=== PATIENT | male | born 1980 | race Caucasian/White ===

== ENCOUNTER 2017-04-30 22:10 | Emergency (ER) | payer MEDICAID ==
[2017-04-30 22:53] LABS: CHLORIDE,CL 104 mmol/L (98-107); SODIUM,NA 142 mmol/L (136-145)
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
[2017-05-01 06:39] VITALS: BP 143/92
== END 2017-05-01 00:05 ==
LOC: LL.ED 22:10
DX: R20.0 Anesthesia of skin (principal); R79.1 Abnormal coagulation profile; M79.662 Pain in left lower leg; H54.7 Unspecified visual loss; I10 Essential (primary) hypertension; J44.9 Chronic obstructive pulmonary disease, unspecified; J45.909 Unspecified asthma, uncomplicated; M19.90 Unspecified osteoarthritis, unspecified site; K21.9 Gastro-esophageal reflux disease without esophagitis; G43.909 Migraine, unspecified, not intractable, without status migrainosus; F32.9 Major depressive disorder, single episode, unspecified; E66.9 Obesity, unspecified; E11.9 Type 2 diabetes mellitus without complications; Z87.891 Personal history of nicotine dependence; Z79.899 Other long term (current) drug therapy
CPT/HCPCS: 36000; 36415; 70450; 80053; 85025; 85379; 85610; 85730; 93005; 99285

== ENCOUNTER 2017-11-08 20:47 | Emergency (ER) | payer BC, MEDICAID ==
--- NOTE | 2017-11-08 20:54 | EDM.PDOC ---
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 generalized Qualified Code(s): R10.84 - Generalized abdominal pain - Discharge Information Prescriptions: Cyclobenzaprine [Flexeril] 10 mg PO TID PRN #30 tablet PRN Reason: Spasms Instructions: Ketorolac injection, Back Pain, Adult, Pantoprazole injection, Abdominal Pain, Adult, [id number], Famotidine injection Referrals: Wayne Petersen PA-C [Primary Care Provider] - Forms: ED Department Discharge Additional Instructions: 1. Followup with your regular provider in 10-14 days as directed. Schedule update of your routine healthcare at that time as discussed 2. Tylenol 650 mg by mouth every 4 hours and/or OTC ibuprofen 2-3 tabs by mouth every 6 hours with food as directed./needed. Next dose of ibuprofen in 6 hours as needed secondary to medications given in the emergency room. Note, however, that ibuprofen should be used with discretion secondary to history of gastric bypass 3. BenGay or equivalent, heating pad, and/or ice packs as directed. 4. Discuss current stressors, etc. with your regular provider at the above follow-up visit, including recently increased alcohol intake, etc. consider reinitiation of your antidepressant therapy, possible alcohol treatment, etc. 5. Stop all tobacco use AYSHA once your emotional status has improved as directed/per provided information and consider contacting [employer], etc.. 6. Increase activity as tolerated 7. Cisco diet including encouragement of oral fluids such as sports drinks, etc. for 24-48 hours as directed. Advance to heart healthy, diabetic, gastric bypass diet as tolerated thereafter. 8. Sedation precautions with Flexeril with absolutely no alcohol with this medication as discussed 9. Discuss scheduling repeat sleep study with your regular provider to verify that you no longer need CPAP for your sleep apnea - Problem List & Annotations (1) Low back pain SNOMED Code(s): 758516835 Code(s): M54.5 - LOW BACK PAIN Status: Acute Priority: High Current Visit: Yes Onset Date: ~11/06/17 Annotation/Comment:: Minor fall on 11/05 with exacerbation of his chronic low back pain. IV Toradol given in the emergency room. Symptomatic relief as per discharge instructions. Close follow- up by his regular provider Qualifiers: Chronicity: acute Back pain laterality: bilateral Sciatica presence: without sciatica Qualified Code(s): M54.5 - Low back pain (2) Abdominal pain SNOMED Code(s): 74719827 Code(s): R10.9 - UNSPECIFIED ABDOMINAL PAIN Status: Acute Priority: High Current Visit: Yes Onset Date: ~11/06/17 Annotation/Comment:: Recent constipation with magnesium citrate given at home prior to arrival to the emergency room. Cisco diet, etc. for now with IV Protonix and IV Pepcid given the emergency room as above/below. Symptomatic relief for now. Patient tolerated IV Toradol well with symptoms improved prior to discharge Qualifiers: Abdominal location: generalized Qualified Code(s): R10.84 - Generalized abdominal pain (3) Tobacco abuse counseling SNOMED Code(s): 687446087, [id number] Code(s): Z71.6 - TOBACCO ABUSE COUNSELING Status: Chronic Priority: Medium Current Visit: Yes Annotation/Comment:: Tobacco cessation encouraged , however note current family problems secondary to his recent alcohol use, etc. as below. (4) Hypertension SNOMED Code(s): 83090000 Code(s): I10 - ESSENTIAL (PRIMARY) HYPERTENSION Status: Chronic Priority : Medium Current Visit: Yes Annotation/Comment:: Blood pressures were elevated initially in the emergency room however improved at time of discharge. Continue to observe closely by his regular provider Qualifiers: Hypertension type: essential hypertension Qualified Code(s): I10 - Essential (primary) hypertension (5) Mixed anxiety depressive disorder SNOMED Code(s): 717900441 Code(s): F41.8 - OTHER SPECIFIED ANXIETY DISORDERS Status: Chronic Priority: Medium Current Visit: Yes Annotation/Comment:: He did stop his antidepressants on his home with current marital problems secondary to his alcohol use as above. Emotional support provided. Close follow-up by his regular provider as per discharge instructions (6) Osteoarthritis SNOMED Code(s): 680223652 Code(s): M19.90 - UNSPECIFIED OSTEOARTHRITIS, UNSPECIFIED SITE Status: Chronic Priority: Medium Current Visit: Yes Annotation/Comment:: Otherwise stable by history Qualifiers: Osteoarthritis location: multiple joints Osteoarthritis type: primary Qualified Code(s): M15.0 - Primary generalized (osteo)arthritis (7) Peptic reflux disease SNOMED Code(s): 96698713 Code(s): K21.9 - GASTRO-ESOPHAGEAL REFLUX DISEASE WITHOUT ESOPHAGITIS Status: Chronic Priority: Medium Current Visit: Yes Annotation/Comment:: Otherwise stable by history with high-dose IV Pepcid and IV Protonix given in the emergency room (8) Diabetes mellitus SNOMED Code(s): 24722856 Code(s): E11.9 - TYPE 2 DIABETES MELLITUS WITHOUT COMPLICATIONS Status: Chronic Priority: Medium Current Visit: Yes Annotation/Comment:: Note intentional 100 pound weight loss since his gastric bypass surgery as above with previous history of hyperlipidemia and diabetes mellitus prior to this surgery. Note that patient has an excellent glycosylated hemoglobin today. He was congratulated about his weight loss, improved diet, etc. Qualifiers: Diabetes mellitus type: type 2 Diabetes mellitus complication status: without complication Diabetes mellitus halfway insulin use: without intermediate manager use Qualified Code(s): E11.9 - Type 2 diabetes mellitus without complications - Problem List Review Problem List Initiated/Reviewed/Updated: Yes - My Orders Last 24 Hours: My Active Orders 11/08/17 20:55 Peripheral IV Care [RC] . DIRECTED Abdomen Series w Chest 1V [CR] Stat H PYLORI STOOL ANTIGEN [MREF] Urgent OCCULT BLOOD DIAGNOSTIC [OP] Stat Sodium Chloride 0.9% [Saline Flush] 10 ml FLUSH ASDIRECTED PRN Obtain Past Medical Record [OM.PC] Urgent Peripheral IV Insertion Adult [OM.PC] Stat Resuscitation Status Stat 11/08/17 20:56 Lumbar Spine 2 or 3V [CR] Stat 11/08/17 21:00 CULTURE URINE [RM] Stat 11/08/17 Breakfast Nothing Per Oral Diet [DIET] - Assessment/Plan Last 24 Hours: My Active Orders 11/08/17 20:55 Peripheral IV Care [RC] . DIRECTED Abdomen Series w Chest 1V [CR] Stat H PYLORI STOOL ANTIGEN [MREF] Urgent OCCULT BLOOD DIAGNOSTIC [OP] Stat Sodium Chloride 0.9% [Saline Flush] 10 ml FLUSH ASDIRECTED PRN Obtain Past Medical Record [OM.PC] Urgent Peripheral IV Insertion Adult [OM.PC] Stat Resuscitation Status Stat 11/08/17 20:56 Lumbar Spine 2 or 3V [CR] Stat 11/08/17 21:00 CULTURE URINE [RM] Stat 11/08/17 Breakfast Nothing Per Oral Diet [DIET] Assessment:: As above Plan: As above. Extensive precautions were given to the patient and his , who are in agreement with the treatment plan. See Patient Instructions for further treatment and plan.
[2017-11-08] MEDS ORDERED: Famotidine 20 MG/2 ML SDV IVPUSH ONE (20:55)
[2017-11-08] MEDS ORDERED: Pantoprazole 40 MG Vial IVPUSH ONE (20:55)
[2017-11-08] MEDS ORDERED: Lactated Ringers 1,000 ML IV ONE (20:55)
[2017-11-08] MEDS: Sodium Chloride 0.9% 10 ML Syringe FLUSH PRN ×2 (21:28→21:48)
[2017-11-08 21:37] LABS: CHLORIDE,CL 103 mmol/L (98-107); SODIUM,NA 139 mmol/L (136-145)
[2017-11-08] MEDS ORDERED: Ketorolac 30 MG/ML SDV IVPUSH ONE (21:45)
[2017-11-08 22:39] VITALS: BP 141/83
== END 2017-11-08 22:55 | disposition home or self-care (01) ==
LOC: LL.ED 20:47
DX: M54.5 Low back pain (principal); R10.84 Generalized abdominal pain; F41.8 Other specified anxiety disorders; K21.9 Gastro-esophageal reflux disease without esophagitis; M15.0 Primary generalized (osteo)arthritis; I10 Essential (primary) hypertension; E11.9 Type 2 diabetes mellitus without complications; Z71.6 Tobacco abuse counseling; F17.210 Nicotine dependence, cigarettes, uncomplicated; W19.XXXA Unspecified fall, initial encounter; Y92.009 Unspecified place in unspecified non-institutional (private) residence as the place of occurrence of the external cause
CPT/HCPCS: 36415; 72100; 74022; 80053; 80305; 81001; 82150; 83036; 83605; 83690; 83735; 84550; 85025; 85610; 85730; 87086; 96361; 96374; 96375; 99285; C9113; G0480; J1885; J7050; J7120; S0028

== ENCOUNTER 2018-11-21 12:05 | Emergency (ER) | payer MEDICAID, OTHER ==
--- NOTE | 2018-11-21 12:09 | EDM.PDOC ---
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 Obtain Past Medical Record [OM.PC] Routine 11/21/18 12:14 C Collar Applied [Spinal Immobilization] [RC] ASDIRECTED - Assessment/Plan Last 24 Hours: My Active Orders 11/21/18 12:09 Head wo Cont [CT] Stat 11/21/18 12:10 Cervical Spine wo Cont [CT] Stat Max Facial Sinus wo Cont [CT] Stat 11/21/18 12:11 Obtain Past Medical Record [OM.PC] Routine 11/21/18 12:12 Peripheral IV Care [RC] . DIRECTED Peripheral IV Insertion Adult [OM.PC] Stat 11/21/18 12:13 Cardiac Monitoring [RC] . DIRECTED Obtain Past Medical Record [OM.PC] Routine 11/21/18 12:14 C Collar Applied [Spinal Immobilization] [RC] ASDIRECTED Assessment:: As above Plan: As above. Extensive precautions were given to the patient, who is in agreement with the treatment plan. See Patient Instructions for further treatment and plan.
[2018-11-21] MEDS ORDERED: Sodium Chloride 0.9% 10 ML Syringe FLUSH PRN (12:12)
[2018-11-21 12:49] LABS: CHLORIDE,CL 103 mmol/L (98-107); SODIUM,NA 141 mmol/L (136-145)
== END 2018-11-21 14:30 | disposition home or self-care (01) ==
LOC: LL.ED 12:05
DX: S06.0X0A Concussion without loss of consciousness, initial encounter (principal); I11.0 Hypertensive heart disease with heart failure; I50.9 Heart failure, unspecified; K21.9 Gastro-esophageal reflux disease without esophagitis; F17.210 Nicotine dependence, cigarettes, uncomplicated; F41.8 Other specified anxiety disorders; I25.10 Atherosclerotic heart disease of native coronary artery without angina pectoris; M19.90 Unspecified osteoarthritis, unspecified site; I25.2 Old myocardial infarction; Z71.6 Tobacco abuse counseling; Z95.5 Presence of coronary angioplasty implant and graft; Y04.8XXA Assault by other bodily force, initial encounter
CPT/HCPCS: 36000; 36415; 70450; 70486; 72125; 80053; 83605; 83735; 85025; 85610; 85730; 99285; G0480

== ENCOUNTER 2019-04-18 05:38 | Emergency (ER) | payer BC, MEDICAID, OTHER ==
[2019-04-18 05:49] VITALS: BP 152/105
[2019-04-18] MEDS ORDERED: Ketorolac 60 MG/2 ML SDV IM ONE (06:25)
[2019-04-18 06:40] LABS: CHLORIDE,CL 104 mmol/L (98-107); SODIUM,NA 139 mmol/L (136-145)
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
== END 2019-04-18 07:30 | disposition home or self-care (01) ==
LOC: LL.ED 05:38
DX: M79.2 Neuralgia and neuritis, unspecified (principal); M25.512 Pain in left shoulder
CPT/HCPCS: 36415; 73030; 80048; 85025; 96372; 99283; J1885

== ENCOUNTER 2020-01-05 13:50 | Inpatient (IN) | payer BC, MEDICAID, OTHER ==
[2020-01-05] MEDS ORDERED: Sodium Chloride 0.9% 10 ML Syringe FLUSH PRN (14:04)
[2020-01-05] MEDS ORDERED: Famotidine 20 MG/2 ML SDV IVPUSH ONE (14:04)
[2020-01-05] MEDS ORDERED: Metoprolol Tartrate 5 MG/5 ML SDV IVPUSH ONE (14:04)
--- NOTE | 2020-01-05 14:04 | EDM.PDOC ---
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 given in the emergency room as GI prophylaxis. Initiate additional IV Protonix after admission. Note that patient' s hemoglobin is actually improved today from previous last hemoglobin of 7.6 on 01/03. Note some current macrocytosis with further blood workup in the a.m. IV Rocephin and IV Flagyl initiated in the emergency room as below. (2) Chest pain SNOMED Code(s): 41495319 Code(s): R07.9 - CHEST PAIN, UNSPECIFIED Status: Acute Priority: [facility] Current Visit: Yes Onset Date: 01/04/20 Annotation/Comment:: Chest pain symptoms improved after IV Pepcid therapy as above. Initiate standard rule out [place] orders. Chest pain protocol was initiated at time of patient's arrival to the emergency room, including IV Lopressor, etc. Aspirin and Brilinta were not given secondary to patient's recent upper GI bleed, however. Cardiology consultation depending on his clinical course. Consider Cardiolite stress test on an outpatient basis. Qualifiers: Chest pain type: precordial pain Qualified Code(s): R07.2 - Precordial pain (3) Lactic acid increased SNOMED Code(s): 12671675 Code(s): E87.2 - ACIDOSIS Status: Acute Priority: [facility] Current Visit: Yes Onset Date: 01/05/20 Annotation/Comment:: No clinical evidence of sepsis although note recent upper GI bleed as above. IV Rocephin and IV Flagyl therapy initiated in the emergency room. Initiate additional IV fluids with repeat lactic acid level in 4 hours as per standard sepsis protocol. (4) Elevated d-dimer SNOMED Code(s): 058040102 Code(s): R79.89 - OTHER SPECIFIED ABNORMAL FINDINGS OF BLOOD CHEMISTRY Status: Chronic Priority: [facility] Current Visit: Yes Annotation/Comment:: Known previous history of chronic d-dimer elevation with negative workup as above. No clinical evidence of DVT or PE. No anticoagulation therapy secondary to recent acute upper GI bleed. (5) Tobacco abuse counseling SNOMED Code(s): 736880480, 374569111, 633520166 Code(s): Z71.6 - TOBACCO ABUSE COUNSELING Status: Chronic Priority: Medium Current Visit: Yes Annotation/Comment:: Tobacco cessation once again strongly encouraged especially in light of his significant recent upper GI bleed , previous gastric bypass and history of peptic ulcer disease. Information once again provided at discharge. (6) Mixed anxiety depressive disorder SNOMED Code(s): 868559401 Code(s): F41.8 - OTHER SPECIFIED ANXIETY DISORDERS Status: Chronic Priority: Medium Current Visit: Yes Annotation/Comment:: Stable by history with patient not on any medications at this time. Moderate control based on today's exam. Continue to observe closely by his regular providers. (7) Osteoarthritis SNOMED Code(s): 225224191 Code(s): M19.90 - UNSPECIFIED OSTEOARTHRITIS, UNSPECIFIED SITE Status: Acute Priority: Medium Current Visit: Yes Onset Date: 11/21/18 Annotation/Comment:: Stable by history with the patient not using NSAIDs recently. Qualifiers: Osteoarthritis location: multiple joints Osteoarthritis type: primary Qualified Code(s): M15.0 - Primary generalized (osteo)arthritis (8) Hypertension SNOMED Code(s): 00004677 Code(s): I10 - ESSENTIAL (PRIMARY) HYPERTENSION Status: Chronic Priority : Medium Current Visit: Yes Annotation/Comment:: Blood pressures were elevated initially in the emergency room however improved at time of admission. Continue to observe closely during this hospitalization and by his regular provider Qualifiers: Hypertension type: essential hypertension Qualified Code(s): I10 - Essential (primary) hypertension - Problem List Review Problem List Initiated/Reviewed/Updated: Yes - My Orders Last 24 Hours: My Active Orders 01/05/20 14:04 Sodium Chloride 0.9% [Saline Flush] 10 ml FLUSH ASDIRECTED PRN Resuscitation Status Stat 01/05/20 14:05 Cardiac Monitoring [RC] . DIRECTED EKG Documentation Completion [RC] ASDIRECTED Oxygen Therapy, ED [RC] PRN Peripheral IV Care [RC] . DIRECTED Pulse Oximetry [RC] CONTINUOUS Up With Assistance [RC] PFP Vital Signs [RC] PFP Obtain Past Medical Record [OM.PC] Urgent Peripheral IV Insertion Adult [OM.PC] Stat 01/05/20 14:06 Abdomen Series w Chest 1V [CR] Stat 01/05/20 Breakfast Nothing per Oral Now Diet [DIET] - Assessment/Plan Admission H&P: Please use this note as an admission H&P Last 24 Hours: My Active Orders 01/05/20 14:04 Sodium Chloride 0.9% [Saline Flush] 10 ml FLUSH ASDIRECTED PRN Resuscitation Status Stat 01/05/20 14:05 Cardiac Monitoring [RC] . DIRECTED EKG Documentation Completion [RC] ASDIRECTED Oxygen Therapy, ED [RC] PRN Peripheral IV Care [RC] . DIRECTED Pulse Oximetry [RC] CONTINUOUS Up With Assistance [RC] PFP Vital Signs [RC] PFP Obtain Past Medical Record [OM.PC] Urgent Peripheral IV Insertion Adult [OM.PC] Stat 01/05/20 14:06 Abdomen Series w Chest 1V [CR] Stat 01/05/20 Breakfast Nothing per Oral Now Diet [DIET] Assessment:: As above Plan: As above. Extensive precautions were given to the patient and his family, who are in agreement with the treatment plan. The patient will require about 3-4 days of inpatient/acute care secondary to multiple health problems as above.
[2020-01-05 14:36] LABS: CHLORIDE,CL 109 mmol/L (98-107); SODIUM,NA 141 mmol/L (136-145)
[2020-01-05] MEDS ORDERED: cefTRIAXone 1 GM in Sodium Chloride 0.9% 100 ML IV ONE (14:43)
[2020-01-05] MEDS ORDERED: metroNIDAZOLE/Normal Saline 500 MG in Premix Bag 1 BAG IV ONE (14:44)
[2020-01-05] MEDS ORDERED: Ondansetron 4 MG/2 ML SDV IVPUSH PRN (16:14)
[2020-01-05] MEDS ORDERED: FLU Vacc QS2019-20(6MOS+)/PF 60 MCG/0.5 ML SYRINGE IM ONE (17:45)
[2020-01-05] MEDS: Acetaminophen 325 MG Tab PO PRN (19:53)
[2020-01-05] MEDS ORDERED: Sodium Chloride 0.9% 10 ML Syringe FLUSH SCH (20:00)
[2020-01-05] MEDS ORDERED: Temazepam 15 MG Cap PO PRN (20:00)
[2020-01-05] MEDS ORDERED: metroNIDAZOLE/Normal Saline 500 MG in Premix Bag 1 BAG IV SCH (23:00)
[2020-01-06] MEDS: Acetaminophen 325 MG Tab PO PRN (00:14)
[2020-01-06 02:10] VITALS: BP 162/90; PULSE 82
[2020-01-06] MEDS ORDERED: Menthol/Methyl Salicylate 85 GM Tube TOP PRN (02:35)
[2020-01-06] MEDS ORDERED: cefTRIAXone 1 GM in Sodium Chloride 0.9% 100 ML IV SCH (04:00)
[2020-01-06] MEDS ORDERED: DULoxetine 30 MG Cap PO SCH (08:00)
[2020-01-06] MEDS ORDERED: Non-Formulary Medication 1 Each (Duloxetine [Cymbalta] 60 MG) PO SCH (08:00)
[2020-01-06] MEDS ORDERED: FLU Vacc QS2019-20(6MOS+)/PF 60 MCG/0.5 ML SYRINGE IM ONE (08:00)
--- NOTE | 2020-01-06 10:14 | PCM.DCSUM1 ---
Discharge Summary - Hospital Course HPI Initial Comments: See emergency room note/admission H&P Brief History: See emergency room note/admission H&P Diagnosis: Stroke: No Modified [place] Scale: No Symptoms at All Modified [place] Scale Score: 0 - Discharge Data Discharge Date: 01/06/20 Discharge Disposition: Against Medical Advice 07 Condition: Good - Referral to Home Health Primary Care Physician: Wayne Petersen PA-C - Discharge Diagnosis/Problem(s) (1) Peptic reflux disease SNOMED Code(s): 564211155 ICD Code: K21.9 - GASTRO-ESOPHAGEAL REFLUX DISEASE WITHOUT ESOPHAGITIS Status: Chronic Priority: High Problem Details: Recurrent abdominal pain since yesterday evening with secondary emesis. Recent upper GI bleed as above. High-dose IV Pepcid given in the emergency room as GI prophylaxis. Initiate additional IV Protonix after admission. Note that patient's hemoglobin is actually improved today from previous last hemoglobin of 7.6 on 01/03. Note some current macrocytosis with further blood workup in the a.m. IV Rocephin and IV Flagyl initiated in the emergency room as below. (2) Chest pain SNOMED Code(s): 88314559 ICD Code: R07.9 - CHEST PAIN, UNSPECIFIED Status: Acute Priority: High Onset Date: 01/04/20 Problem Details: Chest pain symptoms improved after IV Pepcid therapy as above. Initiate standard rule out [place] orders. Chest pain protocol was initiated at time of patient's arrival to the emergency room, including IV Lopressor, etc. Aspirin and Brilinta were not given secondary to patient's recent upper GI bleed, however. Cardiology consultation depending on his clinical course. Consider Cardiolite stress test on an outpatient basis. Qualifiers: Chest pain type: precordial pain Qualified Code(s): R07.2 - Precordial pain (3) Lactic acid increased SNOMED Code(s): 99070255 ICD Code: E87.2 - ACIDOSIS Status: Acute Priority: High Onset Date: Problem Details: No clinical evidence of sepsis although note recent upper GI bleed as above. IV Rocephin and IV Flagyl therapy initiated in the emergency room. Initiate additional IV fluids with repeat lactic acid level in 4 hours as per standard sepsis protocol. (4) Elevated d-dimer SNOMED Code(s): 641100586 ICD Code: R79.89 - OTHER SPECIFIED ABNORMAL FINDINGS OF BLOOD CHEMISTRY Status: Chronic Priority: High Problem Details: Known previous history of chronic d-dimer elevation with negative workup as above. No clinical evidence of DVT or PE. No anticoagulation therapy secondary to recent acute upper GI bleed. (5) Tobacco abuse counseling SNOMED Code(s): 620625123, 503575813, 888703705 ICD Code: Z71.6 - TOBACCO ABUSE COUNSELING Status: Chronic Priority: Medium Problem Details: Tobacco cessation once again strongly encouraged especially in light of his significant recent upper GI bleed, previous gastric bypass and history of peptic ulcer disease. Information once again provided at discharge. (6) Mixed anxiety depressive disorder SNOMED Code(s): 964527538 ICD Code: F41.8 - OTHER SPECIFIED ANXIETY DISORDERS Status: Chronic Priority: Medium Problem Details: Note the patient exhibited drug-seeking behavior during this hospitalization and left AMA this morning with no physical exam and/or discharge instructions able to be given. Stable by history with patient not on any medications at this time. Moderate control based on today's exam. Continue to observe closely by his regular providers. (7) Osteoarthritis SNOMED Code(s): 805836364 ICD Code: M19.90 - UNSPECIFIED OSTEOARTHRITIS, UNSPECIFIED SITE Status: Acute Priority: Medium Onset Date: 11/21/18 Problem Details: Stable by history with the patient not using NSAIDs recently. Qualifiers: Osteoarthritis location: multiple joints Osteoarthritis type: primary Qualified Code(s): M15.0 - Primary generalized (osteo)arthritis (8) Hypertension SNOMED Code(s): 63321598 ICD Code: I10 - ESSENTIAL (PRIMARY) HYPERTENSION Status: Chronic Priority : Medium Problem Details: Blood pressures were elevated initially in the emergency room however improved at time of admission. Continue to observe closely during this hospitalization and by his regular provider Qualifiers: Hypertension type: essential hypertension Qualified Code(s): I10 - Essential (primary) hypertension - Patient Summary/Data Hospital Course: Patient left AMA as above with no discharge instructions, etc. able to be given. Note drug seeking behavior as above. - Discharge Plan *PRESCRIPTION DRUG MONITORING PROGRAM REVIEWED*: Not Applicable *COPY OF PRESCRIPTION DRUG MONITORING REPORT IN PATIENT [place]: Not Applicable Home Medications: Home Meds Ranitidine [Zantac] 150 mg PO BID #30 tab 06/12/19 [Rx] Acetaminophen [Mapap] 3 tab PO ONETIME 01/05/20 [History] DULoxetine [Cymbalta] 30 mg PO DAILY 01/05/20 [History] DULoxetine [Cymbalta] 60 mg PO DAILY 01/05/20 [History] Omeprazole 40 mg PO DAILY 01/05/20 [History] Forms: ED Department Discharge Referrals: Wayne Petersen PA-C [Primary Care Provider] - - Discharge Summary/Plan Comment DC Time >30 min.: No (Patient left AMA) Discharge Summary/Plan Comment: Patient left AMA as above - General Info Date of Service: 01/06/20 Admission Dx/Problem (Free Text: 1. Abdominal pain 2. Chest pain 3. Anemia 4. Anxiety depression disorder Subjective Update: Unable to obtain with patient leaving AMA secondary to drug seeking behavior. - Patient Data Vitals - Most Recent: Last Vital Signs Temp 36.9 C 01/06/20 02:00 Pulse 82 01/06/20 02:00 Resp 14 01/06/20 02:00 BP 162/90 H 01/06/20 02:00 Pulse Ox 98 01/06/20 02:00 Vital Signs - 24 hr 01/05/20 01/05/20 01/05/20 13:53 14:08 14:14 Temperature [ 36.4 C Temporal] Pulse, 86 Peripheral Pulse, 100 93 Peripheral [ Pulse Oximetry] Respiratory 16 Rate Blood Pressure 154/93 H Blood Pressure 172/91 H 154/93 H [Right Arm] O2 Sat by Pulse 100 98 Oximetry 01/05/20 01/05/20 01/05/20 14:31 14:46 15:01 Temperature [ Temporal] Pulse, Peripheral Pulse, 88 77 75 Peripheral [ Pulse Oximetry] Respiratory 24 H 20 20 Rate Blood Pressure Blood Pressure 140/84 139/73 132/74 [Right Arm] O2 Sat by Pulse 98 99 99 Oximetry 01/05/20 01/05/20 01/05/20 15:16 18:00 20:00 Temperature [ 36.4 C 35.6 C L Temporal] Pulse, Peripheral Pulse, 73 74 75 Peripheral [ Pulse Oximetry] Respiratory 19 15 16 Rate Blood Pressure Blood Pressure 130/87 153/95 H 159/94 H [Right Arm] O2 Sat by Pulse 100 100 100 Oximetry 01/05/20 01/06/20 01/06/20 22:00 00:00 02:00 Temperature [ 37.1 C 36.7 C 36.9 C Temporal] Pulse, Peripheral Pulse, 73 84 82 Peripheral [ Pulse Oximetry] Respiratory 14 16 14 Rate Blood Pressure Blood Pressure 152/97 H 147/95 H 162/90 H [Right Arm] O2 Sat by Pulse 97 98 98 Oximetry Weight - Most Recent: 72.575 kg I&O - Last 24 hours: Intake & Output 01/05/20 01/06/20 01/06/20 22:59 06:59 14:59 Intake Total 100 Output Total 400 900 Balance -400 -800 Imaging Impressions - Last 24 hrs: campus monitor showed normal sinus rhythm in the 70s to 90s. No ectopy or arrhythmia. Acute abdominal x-rays on 01/05/20 shows evidence of moderate increased bowel gaseous pattern with multiple fluid levels but no free air. Possible beginning ileus. Moderate stool with additional moderate osteoarthritic changes and scoliosis. No cardiomegaly, CHF, pulmonary infiltrates, pneumothorax. Note COPD changes. Lab Results - Last 24 hrs: Laboratory Results - last 24 hr 01/05/20 01/05/20 01/05/20 Range/Units 14:00 14:00 14:00 WBC 9.2 (4.0-10.2) K/uL RBC 3.07 L (4.33-5.41) M/uL Hgb 9.5 L D (13.1-16.8) g/dL Hct 30.3 L (39.0-49.0) % MCV 98.7 H D (84.0-98.0) fL MCH 30.9 (28.2-33.3) pg MCHC 31.4 L (31.7-36.0) g/dL RDW 15.6 H (11.2-14.1) % Plt Count 547 H D (150-350) K/uL Neut % (Auto) 77.9 (45.0-80.0) % Lymph % (Auto) 10.4 (10.0-50.0) % [place] % (Auto) 10.6 (2.0-14.0) % Eos % (Auto) 0.7 (0.0-5.0) % Baso % (Auto) 0.4 (0.0-2.0) % Neut # (Auto) 7.16 H (1.40-7.00) K/uL Lymph # (Auto) 0.96 (0.50-3.50) K/uL [place] # (Auto) 0.97 (0.00-1.00) K/uL Eos # (Auto) 0.06 (0.00-0.50) K/uL Baso # (Auto) 0.04 (0.00-0.20) K/uL PT 10.4 (9.5-12.0) SEC INR 1.0 APTT 25.0 (21.0-31.3) SEC D-Dimer, Quantitative 123 (0-400) ng/mL Sodium (136-145) mmol/L Potassium (3.5-5.1) mmol/L Chloride (98-107) mmol/L Carbon Dioxide (21.0-32.0) mmol/L BUN (7-18) mg/dL Creatinine (0.51-1.17) mg/dL Est Cr Clr Drug Dosing Estimated GFR (MDRD) mL/min Glucose (74-106) mg/dL Lactic Acid (0.4-2.0) mmol/L Uric Acid (2.6-7.2) mg/dL Calcium (8.5-10.1) mg/dL Magnesium (1.8-2.4) mg/dL Total Bilirubin (0.2-1.0) mg/dL AST (15-37) U/L ALT (12-78) U/L Alkaline Phosphatase (46-116) IU/L Creatine Kinase (26-308) U/L Creatine Kinase Index (0.0-2.5) % CK-MB (CK-2) (0.00-3.60) ng/mL Troponin I (0.000-0.056) ng/mL NT-Pro-B Natriuret Pep (0-125) pg/mL Total Protein (6.4-8.2) g/dL Albumin (3.4-5.0) g/dL Amylase (25-115) U/L Lipase (73-393) U/L TSH, Ultra Sensitive (0.358-3.740) mIU/mL Specimen Type Urine Color (YELLOW) Urine Appearance (CLEAR) Urine pH (5.0-9.0) Ur Specific [place] (1.005-1.030) Urine Protein (NEGATIVE) mg/dL Urine Glucose (UA) (NEGATIVE) mg/dL Urine Ketones (NEGATIVE) mg/dL Urine Occult Blood (NEGATIVE) Urine Nitrite (NEGATIVE) Urine Bilirubin (NEGATIVE) Urine Urobilinogen (0.2-1.0) E.U./dL Ur Leukocyte Esterase (NEGATIVE) U Hyaline Cast (Auto) Urine RBC /HPF Urine WBC /HPF Ur Epithelial Cells /LPF Urine Bacteria (NONE TO FEW) /HPF 01/05/20 01/05/20 01/05/20 Range/Units 14:00 14:00 18:05 WBC (4.0-10.2) K/uL RBC (4.33-5.41) M/uL Hgb (13.1-16.8) g/dL Hct (39.0-49.0) % MCV (84.0-98.0) fL MCH (28.2-33.3) pg MCHC (31.7-36.0) g/dL RDW (11.2-14.1) % Plt Count (150-350) K/uL Neut % (Auto) (45.0-80.0) % Lymph % (Auto) (10.0-50.0) % [place] % (Auto) (2.0-14.0) % Eos % (Auto) (0.0-5.0) % Baso % (Auto) (0.0-2.0) % Neut # (Auto) (1.40-7.00) K/uL Lymph # (Auto) (0.50-3.50) K/uL [place] # (Auto) (0.00-1.00) K/uL Eos # (Auto) (0.00-0.50) K/uL Baso # (Auto) (0.00-0.20) K/uL PT (9.5-12.0) SEC INR APTT (21.0-31.3) SEC D-Dimer, Quantitative (0-400) ng/mL Sodium 141 (136-145) mmol/L Potassium 4.5 (3.5-5.1) mmol/L Chloride 109 H (98-107) mmol/L Carbon Dioxide 19.2 L (21.0-32.0) mmol/L BUN 18 (7-18) mg/dL Creatinine 0.73 (0.51-1.17) mg/dL Est Cr Clr Drug Dosing TNP Estimated GFR (MDRD) > 60 mL/min Glucose 75 (74-106) mg/dL Lactic Acid 2.5 H (0.4-2.0) mmol/L Uric Acid 3.0 (2.6-7.2) mg/dL Calcium 8.6 (8.5-10.1) mg/dL Magnesium 1.9 (1.8-2.4) mg/dL Total Bilirubin 0.2 (0.2-1.0) mg/dL AST 31 (15-37) U/L ALT 31 (12-78) U/L Alkaline Phosphatase 102 (46-116) IU/L Creatine Kinase 75 38 (26-308) U/L Creatine Kinase Index 1.1 1.8 (0.0-2.5) % CK-MB (CK-2) 0.80 0.70 (0.00-3.60) ng/mL Troponin I 0.000 0.003 (0.000-0.056) ng/mL NT-Pro-B Natriuret Pep 181 H (0-125) pg/mL Total Protein 7.4 (6.4-8.2) g/dL Albumin 3.5 (3.4-5.0) g/dL Amylase 68 (25-115) U/L Lipase 391 (73-393) U/L TSH, Ultra Sensitive 0.851 (0.358-3.740) mIU/mL Specimen Type Urine Color (YELLOW) Urine Appearance (CLEAR) Urine pH (5.0-9.0) Ur Specific [place] (1.005-1.030) Urine Protein (NEGATIVE) mg/dL Urine Glucose (UA) (NEGATIVE) mg/dL Urine Ketones (NEGATIVE) mg/dL Urine Occult Blood (NEGATIVE) Urine Nitrite (NEGATIVE) Urine Bilirubin (NEGATIVE) Urine Urobilinogen (0.2-1.0) E.U./dL Ur Leukocyte Esterase (NEGATIVE) U Hyaline Cast (Auto) Urine RBC /HPF Urine WBC /HPF Ur Epithelial Cells /LPF Urine Bacteria (NONE TO FEW) /HPF 01/05/20 01/05/20 Range/Units 18:05 18:16 WBC (4.0-10.2) K/uL RBC (4.33-5.41) M/uL Hgb (13.1-16.8) g/dL Hct (39.0-49.0) % MCV (84.0-98.0) fL MCH (28.2-33.3) pg MCHC (31.7-36.0) g/dL RDW (11.2-14.1) % Plt Count (150-350) K/uL Neut % (Auto) (45.0-80.0) % Lymph % (Auto) (10.0-50.0) % [place] % (Auto) (2.0-14.0) % Eos % (Auto) (0.0-5.0) % Baso % (Auto) (0.0-2.0) % Neut # (Auto) (1.40-7.00) K/uL Lymph # (Auto) (0.50-3.50) K/uL [place] # (Auto) (0.00-1.00) K/uL Eos # (Auto) (0.00-0.50) K/uL Baso # (Auto) (0.00-0.20) K/uL PT (9.5-12.0) SEC INR APTT (21.0-31.3) SEC D-Dimer, Quantitative (0-400) ng/mL Sodium (136-145) mmol/L Potassium (3.5-5.1) mmol/L Chloride (98-107) mmol/L Carbon Dioxide (21.0-32.0) mmol/L BUN (7-18) mg/dL Creatinine (0.51-1.17) mg/dL Est Cr Clr Drug Dosing Estimated GFR (MDRD) mL/min Glucose (74-106) mg/dL Lactic Acid 1.0 (0.4-2.0) mmol/L Uric Acid (2.6-7.2) mg/dL Calcium (8.5-10.1) mg/dL Magnesium (1.8-2.4) mg/dL Total Bilirubin (0.2-1.0) mg/dL AST (15-37) U/L ALT (12-78) U/L Alkaline Phosphatase (46-116) IU/L Creatine Kinase (26-308) U/L Creatine Kinase Index (0.0-2.5) % CK-MB (CK-2) (0.00-3.60) ng/mL Troponin I (0.000-0.056) ng/mL NT-Pro-B Natriuret Pep (0-125) pg/mL Total Protein (6.4-8.2) g/dL Albumin (3.4-5.0) g/dL Amylase (25-115) U/L Lipase (73-393) U/L TSH, Ultra Sensitive (0.358-3.740) mIU/mL Specimen Type Urincc Urine Color Yellow (YELLOW) Urine Appearance Clear (CLEAR) Urine pH 5.0 (5.0-9.0) Ur Specific [place] 1.025 (1.005-1.030) Urine Protein Negative (NEGATIVE) mg/dL Urine Glucose (UA) 100 H (NEGATIVE) mg/dL Urine Ketones Negative (NEGATIVE) mg/dL Urine Occult Blood Negative (NEGATIVE) Urine Nitrite Negative (NEGATIVE) Urine Bilirubin Negative (NEGATIVE) Urine Urobilinogen 0.2 (0.2-1.0) E.U./dL Ur Leukocyte Esterase Negative (NEGATIVE) U Hyaline Cast (Auto) Rare Urine RBC 0-5 /HPF Urine WBC 0-5 /HPF Ur Epithelial Cells Rare /LPF Urine Bacteria Not seen (NONE TO FEW) /HPF ERNESTO Results - Last 24 hrs: Microbiology 01/05/20 16:14 Urine Culture - Preliminary Urine, Clean Catch NO GROWTH AFTER 1 DAY Med Orders - Current: Current Medications Discontinued Medications Acetaminophen (Tylenol) 650 mg PO Q4H PRN PRN Reason: Pain Last Admin: 01/06/20 00:14 Dose: 650 mg Duloxetine HCl (Cymbalta) 90 mg PO DAILY [facility] Famotidine (Pepcid) 40 mg IVPUSH ONETIME ONE Stop: 01/05/20 14:05 Last Admin: 01/05/20 14:13 Dose: 40 mg Famotidine (Pepcid) 20 mg IVPUSH Q12H [facility] Ceftriaxone Sodium 1 gm/ (Sodium Chloride) 100 mls @ 200 mls/hr IV ONETIME ONE Stop: 01/05/20 15:12 Last Admin: 01/05/20 15:29 Dose: 200 mls/hr Metronidazole 500 mg/ Premix 100 mls @ 100 mls/hr IV ONETIME ONE Stop: 01/05/20 15:43 Last Admin: 01/05/20 16:27 Dose: 100 mls/hr Ceftriaxone Sodium 1 gm/ (Sodium Chloride) 100 mls @ 200 mls/hr IV Q12H [facility] Metronidazole 500 mg/ Premix 100 mls @ 100 mls/hr IV Q8H [facility] Last Admin: 01/05/20 22:15 Dose: 100 mls/hr Influenza Virus Vaccine (Pharmacy To Dose - Influenza Vaccine) 1 each IM ONETIME ONE Stop: 01/05/20 17:34 Influenza Virus Vaccine (Fluzone Quad Syringe) 60 mcg IM .ONCE ONE Stop: 01/05/20 17:46 Last Admin: 01/05/20 18:36 Dose: Not Given Influenza Virus Vaccine (Fluzone Quad Syringe) 60 mcg IM .ONCE ONE Stop: 01/06/20 08:01 Methyl Salicylate (Icy Hot Cream) 15 gm TOP QID PRN PRN Reason: Pain (mild 1-3) Last Admin: 01/06/20 02:49 Dose: 1 applic Metoprolol Tartrate (Lopressor) 2.5 mg IVPUSH ONETIME ONE Stop: 01/05/20 14:05 Last Admin: 01/05/20 14:14 Dose: 2.5 mg Non-Formulary Medication (Duloxetine [Cymbalta]) 60 mg PO DAILY [facility] Ondansetron HCl (Zofran) 4 mg IVPUSH Q6H PRN PRN Reason: Nausea/Vomiting Pantoprazole Sodium (Protonix Iv) 40 mg IVPUSH Q12H [facility] Sodium Chloride (Saline Flush) 10 ml FLUSH ASDIRECTED PRN PRN Reason: Keep Vein Open Last Admin: 01/05/20 14:13 Dose: 10 ml Sodium Chloride (Saline Flush) 10 ml FLUSH Q12HR [facility] Last Admin: 01/05/20 22:14 Dose: 10 ml Temazepam (Restoril) 15 mg PO DAILY@2000 PRN PRN Reason: Insomnia Comments:: Physical exam not able to be performed secondary to patient leaving AMA.
[2020-01-06] MEDS ORDERED: Famotidine 20 MG/2 ML SDV IVPUSH SCH (14:00)
[2020-01-06] MEDS ORDERED: Pantoprazole 40 MG Vial IVPUSH SCH (16:14)
== END 2020-01-06 03:45 | disposition left against medical advice (07) | DRG 392 ==
LOC: LL.ED 13:50 → UNDOADMIN 15:37 → LL.MS 15:37 → UNDODISIN 01-06 03:45
PROVIDERS: ADMIT Family Medicine; ATTEND Family Medicine
DX: K21.9 Gastro-esophageal reflux disease without esophagitis (principal); E87.2 Acidosis; H54.7 Unspecified visual loss; E78.00 Pure hypercholesterolemia, unspecified; I10 Essential (primary) hypertension; J44.9 Chronic obstructive pulmonary disease, unspecified; M54.9 Dorsalgia, unspecified; F17.210 Nicotine dependence, cigarettes, uncomplicated; G89.29 Other chronic pain; F41.8 Other specified anxiety disorders; R79.89 Other specified abnormal findings of blood chemistry; M15.0 Primary generalized (osteo)arthritis; G43.909 Migraine, unspecified, not intractable, without status migrainosus; E11.9 Type 2 diabetes mellitus without complications; E66.9 Obesity, unspecified; Z98.84 Bariatric surgery status; Z98.49 Cataract extraction status, unspecified eye; Z90.49 Acquired absence of other specified parts of digestive tract; Z98.890 Other specified postprocedural states; Z71.6 Tobacco abuse counseling; Z79.899 Other long term (current) drug therapy; Z68.25 Body mass index [BMI] 25.0-25.9, adult
CPT/HCPCS: 36415; 74022; 80053; 81001; 82150; 82550; 82553; 83605; 83690; 83735; 83880; 84443; 84484; 84550; 85025; 85379; 85610; 85730; 87086; 93005; 96365; 96375; 99285-25; A9270-GY; J0696; J3490; J7050

== ENCOUNTER 2021-05-04 09:54 | Emergency (ER) | payer BC, MEDICAID, MEDICARE, OTHER ==
[2021-05-04 10:48] LABS: CHLORIDE,CL 103 mmol/L (98-107); SODIUM,NA 138 mmol/L (136-145)
[2021-05-04] MEDS ORDERED: Sodium Chloride 0.9% 1,000 ML IV ONE (11:13)
[2021-05-04 12:23] VITALS: BP 150/95; PULSE 73
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
== END 2021-05-04 12:40 | disposition home or self-care (01) ==
LOC: LL.ED 09:54
DX: K52.9 Noninfective gastroenteritis and colitis, unspecified (principal); E78.00 Pure hypercholesterolemia, unspecified; I10 Essential (primary) hypertension; J44.9 Chronic obstructive pulmonary disease, unspecified; K21.9 Gastro-esophageal reflux disease without esophagitis; E11.9 Type 2 diabetes mellitus without complications; E66.9 Obesity, unspecified; Z68.30 Body mass index [BMI] 30.0-30.9, adult; Z20.822 Contact with and (suspected) exposure to COVID-19
CPT/HCPCS: 36415; 74019; 80053; 81001; 82272; 83605; 83735; 85025; 99284; 99284-25; J7030; U0002

== ENCOUNTER 2022-09-15 16:08 | Emergency (ER) | payer OTHER, MEDICARE, MEDICAID ==
[2022-09-15] MEDS ORDERED: Morphine 2 MG/ML SYRINGE IM ONE (16:29)
[2022-09-15 19:53] VITALS: BP 131/88; PULSE 71
== END 2022-09-15 18:00 | disposition home or self-care (01) ==
LOC: LL.ED 16:08
DX: S00.81XA Abrasion of other part of head, initial encounter (principal); E78.00 Pure hypercholesterolemia, unspecified; I10 Essential (primary) hypertension; E78.5 Hyperlipidemia, unspecified; E66.9 Obesity, unspecified; J44.9 Chronic obstructive pulmonary disease, unspecified; E11.9 Type 2 diabetes mellitus without complications; F17.210 Nicotine dependence, cigarettes, uncomplicated; Z68.30 Body mass index [BMI] 30.0-30.9, adult; W22.09XA Striking against other stationary object, initial encounter
CPT/HCPCS: 70486; 96372; 99283; J2270

== ENCOUNTER 2023-06-18 08:15 | Emergency (ER) | payer MEDICARE, MEDICAID ==
[~2023-06-18 08:15] MED LIST: Sodium Chloride 0.9% 1,000 ML IV ONE
[2023-06-18 08:32] LABS: BASOPHILS ABSOLUTE AUTO 0.05 K/uL (0.00-0.20); BASOPHILS PERCENT AUTO 0.4 % (0.0-2.0); EOSINOPHILS ABSOLUTE AUTO 0.03 K/uL (0.00-0.50); EOSINOPHILS PERCENT AUTO 0.2 % (0.0-5.0); HEMATOCRIT 49.2 % (39.0-49.0); HEMOGLOBIN 16.9 g/dL (13.1-16.8); LYMPHOCYTES ABSOLUTE AUTO 1.25 K/uL (0.50-3.50); LYMPHOCYTES PERCENT AUTO 9.9 % (10.0-50.0); MEAN CORPUSCULAR HEMOGLOBIN 31.1 pg (28.2-33.3); MEAN CORPUSCULAR HGB CONC 34.3 g/dL (31.7-36.0); MEAN CORPUSCULAR VOLUME 90.6 fL (84.0-98.0); MONOCYTES ABSOLUTE AUTO 0.82 K/uL (0.00-1.00); MONOCYTES PERCENT AUTO 6.5 % (2.0-14.0); NEUTROPHILS ABSOLUTE AUTO 10.51 K/uL (1.40-7.00); PLATELET COUNT,PLT 231 K/uL (150-350); RED BLOOD CELL COUNT 5.43 M/uL (4.33-5.41); RED CELL DISTRIBUTION WIDTH 15.6 % (11.2-14.1); WHITE BLOOD CELL COUNT,WBC 12.7 K/uL (4.0-10.2)
[2023-06-18] MEDS ORDERED: LORazepam 2 MG/ML SDV IVPUSH ONE ×2 (08:35→08:57)
[2023-06-18 08:38] LABS: ALBUMIN 3.8 g/dL (3.4-5.0); ANION GAP 23.1 meq/L (7-15); BILIRUBIN TOTAL 0.6 mg/dL (0.2-1.0); CARBON DIOXIDE,CO2 19.8 mmol/L (21.0-32.0); CREATININE 1.03 mg/dL (0.51-1.17); EST CRCL DRUG DOSING (CG) 82.2 mL/min; POTASSIUM,K 3.9 mmol/L (3.5-5.1); PROTEIN TOTAL,TP 8.8 g/dL (6.4-8.2)
[2023-06-18] MEDS ORDERED: LORazepam 2 MG/ML SDV IVPUSH PRN (09:05)
[2023-06-18] MEDS ORDERED: Sodium Chloride 0.9% 1,000 ML IV ONE ×2 (09:20→09:43)
[2023-06-18] MEDS ORDERED: Thiamine 100 MG in Sodium Chloride 0.9% 100 ML IV ONE (09:43)
[2023-06-18] MEDS ORDERED: Thiamine 200 MG/2 ML MDV ONE (09:51)
[2023-06-18 10:59] VITALS: BP 132/83; PULSE 110
== END 2023-06-18 10:36 ==
LOC: LL.ED 08:15
DX: F10.231 Alcohol dependence with withdrawal delirium (principal); F17.210 Nicotine dependence, cigarettes, uncomplicated; E11.9 Type 2 diabetes mellitus without complications; E66.9 Obesity, unspecified; J44.9 Chronic obstructive pulmonary disease, unspecified; I10 Essential (primary) hypertension; E78.00 Pure hypercholesterolemia, unspecified; Z68.21 Body mass index [BMI] 21.0-21.9, adult
CPT/HCPCS: 36415; 71045; 80053; 80307; 84484; 85025; 93005; 93010; 96361; 96365; 96375; 96376; 99284; 99285-25; J2060; J3411; J3490; J7030

== ENCOUNTER 2024-02-27 15:23 | Emergency (ER) | payer BC, MEDICARE ==
[2024-02-27 15:42] VITALS: BP 134/90; PULSE 87
[2024-02-27 15:52] LABS: BASOPHILS ABSOLUTE AUTO 0.02 K/uL (0.00-0.20); BASOPHILS PERCENT AUTO 0.2 % (0.0-2.0); EOSINOPHILS ABSOLUTE AUTO 0.03 K/uL (0.00-0.50); EOSINOPHILS PERCENT AUTO 0.3 % (0.0-5.0); HEMATOCRIT 45.6 % (39.0-49.0); LYMPHOCYTES ABSOLUTE AUTO 0.94 K/uL (0.50-3.50); LYMPHOCYTES PERCENT AUTO 8.7 % (10.0-50.0); MEAN CORPUSCULAR HEMOGLOBIN 31.1 pg (28.2-33.3); MEAN CORPUSCULAR HGB CONC 32.9 g/dL (31.7-36.0); MEAN CORPUSCULAR VOLUME 94.4 fL (84.0-98.0); MONOCYTES ABSOLUTE AUTO 0.63 K/uL (0.00-1.00); MONOCYTES PERCENT AUTO 5.8 % (2.0-14.0); NEUTROPHILS ABSOLUTE AUTO 9.21 K/uL (1.40-7.00); PLATELET COUNT,PLT 227 K/uL (150-350); RED BLOOD CELL COUNT 4.83 M/uL (4.33-5.41); RED CELL DISTRIBUTION WIDTH 13.4 % (11.2-14.1); WHITE BLOOD CELL COUNT,WBC 10.8 K/uL (4.0-10.2)
[2024-02-27 16:03] LABS: APPEARANCE,URINE CLEAR; BILIRUBIN,URINE NEGATIVE (NEGATIVE); COLOR,URINE YELLOW; GLUCOSE,URINE NEGATIVE (NEGATIVE); KETONES,URINE 15 mg/dL (NEGATIVE); LEUKOCYTE ESTERASE,URINE NEGATIVE (NEGATIVE); NITRITE,URINE NEGATIVE (NEGATIVE); OCCULT BLOOD,URINE TRACE-INTACT (NEGATIVE); PROTEIN,URINE NEGATIVE (NEGATIVE); UROBILINOGEN,URINE 0.2 E.U./dL (0.2-1.0)
[2024-02-27 16:08] LABS: ALANINE AMINOTRANSFERASE,ALT 17 U/L (12-78); ALBUMIN 3.6 g/dL (3.4-5.0); ALKALINE PHOSPHATASE 113 IU/L (46-116); ANION GAP 7.6 meq/L (7-15); ASPARTATE AMNIOTRANSFERASE,AST 18 U/L (15-37); BILIRUBIN TOTAL 0.4 mg/dL (0.2-1.0); BLOOD UREA NITROGEN,BUN 14 mg/dL (7-18); CALCIUM 8.9 mg/dL (8.5-10.1); CARBON DIOXIDE,CO2 28.4 mmol/L (21.0-32.0); CHLORIDE,CL 101 mmol/L (98-107); CREATININE 1.02 mg/dL (0.51-1.17); ESTIMATED GFR 92 mL/min (>=60); GLUCOSE RANDOM 134 mg/dL (70-99); POTASSIUM,K 4.6 mmol/L (3.5-5.1); PROTEIN TOTAL,TP 7.8 g/dL (6.4-8.2); SODIUM,NA 137 mmol/L (136-145)
[2024-02-27 16:13] LABS: RBC,URINE 0-5 /HPF; WBC,URINE 0-5 /HPF
[2024-02-27 16:16] LABS: AMPHETAMINES SCREEN, URINE NEGATIVE (NEGATIVE); BARBITURATE SCREEN,URINE NEGATIVE (NEGATIVE); BENZODIAZEPINES SCREEN,URINE NEGATIVE (NEGATIVE); COCAINE METABOLITES,URINE NEGATIVE (NEGATIVE); EDDP,URINE SCREEN NEGATIVE (NEGATIVE); METHAMPHETAMINES SCREEN, URINE NEGATIVE (NEGATIVE); TCA SCREEN,URINE NEGATIVE (NEGATIVE); THC SCREEN,URINE 50 NG/ML POSITIVE (NEGATIVE)
[2024-02-27 16:18] LABS: BUPRENORPHINE SCREEN,URINE NEGATIVE (NEGATIVE); OXYCODONE SCREEN,URINE NEGATIVE (NEGATIVE)
== END 2024-02-27 16:30 | disposition home or self-care (01) ==
LOC: LL.ED 15:23
DX: R55 Syncope and collapse (principal); I10 Essential (primary) hypertension; E11.9 Type 2 diabetes mellitus without complications; J44.9 Chronic obstructive pulmonary disease, unspecified; F17.210 Nicotine dependence, cigarettes, uncomplicated
CPT/HCPCS: 36415; 80053; 80305-QW; 80307; 81001; 85025; 93005; 99284